=== PATIENT | female | born 1945 | race Caucasian/White ===

== ENCOUNTER 2020-08-31 08:33 | Emergency (ER) | payer MEDICARE, OTHER, SELFPAY ==
[2020-08-31 08:36] VITALS: BP 153/92; PULSE 71; RESP 17; TEMP 36.6; O2SAT 99; BMI 25.4
--- NOTE | 2020-08-31 08:38 | XR_ITS ---
WS: [id number] RIGHT FOOT: 3 VIEW(S) TECHNIQUE: AP, oblique and lateral. HISTORY: foot pain COMPARISON: None available. No acute fracture or dislocation. Normal tarsal/metatarsal alignment. Soft tissue edema over the lateral foot near the fifth metatarsophalangeal joint. There is also exten sive soft tissue edema surrounding the metatarsals. No foreign body. No evidence for osteomyelitis. XR/XR foot RT min 3V* [id number] IMPRESSION: Soft tissue edema surrounding the foot. No fracture.
--- NOTE | 2020-08-31 08:59 | PC.NURSE ---
RADIOLOGY AT BEDSIDE
--- NOTE | 2020-08-31 09:24 | ED_ITS ---
HPI - Extremity Problem General: Chief complaint: Extremity Injury, Lower Stated complaint: R FOOT PAIN Time Seen by Provider: 08/31/20 08:37 History of Present Illness: HPI Narrative: 75-year-old female comes in complaining of right foot pain 2 weeks ago she jammed her right fifth toe. Initially it felt okay she no new problems that in the last couple of days she began having swelling and pain. She has not had any puncture wounds or injuries cuts or abrasions that she has noticed. She denies previously having any episodes like this. She has no history of peripheral vascular disease and she has no history of diabetes. No other trauma to the the foot since the episode 2 weeks ago. MD Complaint: joint swelling and joint pain Onset (ago): day(s) (2) Pain Consistency: constant Location: left Quality: aching and constant Radiation: none Relieving factors: rest Exacerbating factors: weight bearing, walking and palpation Associated symptoms: Deny arthralgias, chest pain, fever(s), myalgias, rash or short of breath Review of Systems Const: Denies: fever(s) ENMT: Denies: throat pain, ear or mastoid pain, nasal discharge or nasal congestion Card: Denies: chest pain Resp: Denies: dyspnea, productive cough or non-productive cough GI: Denies: abdominal pain, nausea, vomiting, hematemesis, coffee ground emesis, diarrhea, constipation, bloating, hematochezia or melena : Denies: flank pain, difficulty voiding, dysuria, urinary frequency or urinary urgency Skin/Breast: Denies: rash Physical Exam Const: COMMON NORMALS: no acute distress GENERAL APPEARANCE: cooperative and comfortable ORIENTATION/CONSCIOUSNESS: Yes awake, Yes oriented to person, Yes oriented to place and Yes oriented to time HENMT: COMMON NORMALS: normocephalic, atraumatic and hearing grossly normal bilaterally HEAD & SCALP: normocephalic and atraumatic Neck/C-Spine: COMMON NORMALS: no JVD Lymph: LYMPHATIC: no lymphadenopathy noted and no lymphedema noted Resp: COMMON NORMALS: normal respiratory effort, No retractions, No use of accessory muscles and clear to auscultation bilaterally AUSCULTATION: clear to auscultation bilaterally Cardio: COMMON NORMALS: no JVD, regular rate, regular rhythm and No murmurs present (Cardio) RATE: regular rate RHYTHM: regular rhythm GI: COMMON NORMALS: Soft to palpation and No hepatosplenomegaly present AUSCULTATION: Yes normoactive bowel sounds PALPATION: Yes Soft to palpation, No Tenderness to palpation present (GI), No Guarding due to palpation present (GI) and Yes No hepatosplenomegaly present Extremity: NARRATIVE EXTREMITY EXAM: Swelling and erythema with localized edema of the right fifth MP joint. There is no evidence of abscess there is no induration. Dorsalis pedis posterior tibialis pulses are normal. Range of motion normal. MP joint exquisitely tender even to light touch. Neuro: SENSORIUM/ORIENTATION: Yes oriented to person, Yes oriented to place and Yes oriented to time Skin: COMMON NORMALS: no rashes or lesions noted GENERAL SKIN EXAM: no rashes or lesions noted Course Vital Signs: Vital signs: Vital Signs Temperature 97.9 F 08/31/20 08:36 Pulse Rate 60 08/31/20 10:26 Respiratory Rate 17 08/31/20 10:26 Blood Pressure 146/68 08/31/20 10:26 Pulse Oximetry 100 08/31/20 10:26 MDM - Extremity (Nontraumatic) Lab Data: Attestation: I reviewed the patient's lab results. Labs: Lab Results 08/31/20 08/31/20 Range/Units 09:19 09:19 WBC 10.2 H (4.0-10.0) 10^3/ uL RBC 4.33 (4.1-5.3) 10^6/u L Hgb 12.1 (11.5-15.3) g/dL Hct 39.3 (37.0-47.0) % MCV 90.8 (81-99) fL MCH 27.9 L (28.0-34.0) pg MCHC 30.8 (30.0-36.0) g/dL RDW 14.1 (12.1-15.1) % Plt Count 329 (130-400) 10^3/c mm MPV 10.0 (7.4-10.4) fL Neut % (Auto) 72.8 % Lymph % (Auto) 17.2 % [place] % (Auto) 6.1 % Eos % (Auto) 1.9 % Baso % (Auto) 1.1 % Neut # (Auto) 7.46 (1.8-7.7) 10^3/u L Lymph # (Auto) 1.8 (0.8-4.8) 10^3/u L [place] # (Auto) 0.6 (0.2-0.9) 10^3/u L Eos # (Auto) 0.2 (0.0-0.8) 10^3/u L Baso # (Auto) 0.1 (0.0-0.1) 10^3/u L Nucleated RBC % (a uto) 0 % Nucleated RBCs # 0.0 /100WBC Sodium 136 (136-145) mmol/L Potassium 4.3 (3.5-5.1) mmol/L Chloride 101 (98-107) mmol/L Carbon Dioxide 25 (22-29) mmol/L Anion Gap 14.3 (5-19) BUN 9 (8-23) mg/dL Creatinine 0.8 (0.5-0.9) mg/dL GFR Calculation Not Reportable Glucose 111 (65-115) mg/dL Calculated Osmolal ity 281 L (285-295) mOsm/k g Calcium 9.0 (8.5-10.5) mg/dL Total Bilirubin 0.2 (0.15-1.2) mg/dL AST 13 (0-32) U/L ALT 10 (0-33) U/L Alkaline Phosphata se 125 H (35-105) IU/L Total Protein 6.9 (6.6-8.7) g/dL Albumin 4.0 (3.5-5.2) g/dL Globulin 2.9 (1.3-4.6) g/dL Discharge Plan Discharge Patient Disposition: Home Clinical Impression: Gouty arthritis of left foot Condition: Stable Prescriptions: New hydrocodone-acetaminophen 5-325 mg tablet 1 tab PO Q6H PRN (Reason: pain) Qty: 10 RF: 0 diclofenac sodium 75 mg tablet,delayed release (DR/EC) 75 mg PO Q12H PRN (Reason: pain) Qty: 20 RF: 0 Medrol (Jimmy) 4 mg tablets,dose pack See Rx Instructions .ROUTE .COMPLEX Qty: 21 RF: 0 Discharge Orders: Discharge Order (Routine); Ordered 08/31/20 Ordered By: Ganesh Varela Discharge Date/Time: 08/31/20 10:26 Coding Level of Care Code ED Drawing In Hand for Chg Fwd Exam Comprehensive
[2020-08-31 09:35] LABS: Basophils # 0.1 10^3/uL (0.0-0.1); Basophils % 1.1 %; Eosinophils # 0.2 10^3/uL (0.0-0.8); Eosinophils % 1.9 %; Hematocrit 39.3 % (37.0-47.0); Hemoglobin 12.1 g/dL (11.5-15.3); Lymphocytes # 1.8 10^3/uL (0.8-4.8); Lymphocytes % 17.2 %; Mean Corpuscular HGB Conc 30.8 g/dL (30.0-36.0); Mean Corpuscular Hemoglobin 27.9 pg (28.0-34.0); Mean Corpuscular Volume 90.8 fL (81-99); Monocytes # 0.6 10^3/uL (0.2-0.9); Monocytes % 6.1 %; Neutrophils # 7.46 10^3/uL (1.8-7.7); Neutrophils % 72.8 %; Nucleated Red Blood Cells % 0 %; Platelet Count 329 10^3/cmm (130-400); Red Blood Count 4.33 10^6/uL (4.1-5.3); Red Cell Distribution Width 14.1 % (12.1-15.1); White Blood Count 10.2 10^3/uL (4.0-10.0)
[2020-08-31 09:54] LABS: Alanine Aminotransferase 10 U/L (0-33); Alkaline Phosphatase 125 IU/L (35-105); Aspartate Amino Transferase 13 U/L (0-32); Blood Urea Nitrogen 9 mg/dL (8-23); Carbon Dioxide 25 mmol/L (22-29); Chloride 101 mmol/L (98-107); Globulin 2.9 g/dL (1.3-4.6); Glucose 111 mg/dL (65-115); Osmolality Calculated 281 mOsm/kg (285-295); Sodium 136 mmol/L (136-145); Total Bilirubin 0.2 mg/dL (0.15-1.2); Total Protein 6.9 g/dL (6.6-8.7)
[2020-08-31 09:57] LABS: Anion Gap 14.3 (5-19); Potassium 4.3 mmol/L (3.5-5.1)
[2020-08-31] MEDS: HYDROcodone-acetaminophen 7.5-325 mg Tablet 1 TAB PO (10:17)
[2020-08-31 10:26] VITALS: BP 146/68; PULSE 60; RESP 17; O2SAT 100
--- NOTE | 2020-08-31 13:15 | DCPLANNER ---
dispatch manager had message to schedule a follow up appointment for patient with a primary care physician. dispatch manager called the [facility] in [place], spoke with Liyah. A follow up appointment is scheduled for Thursday, September 05, 2020 at 10:00 with Shabana. dispatch manager called patient and gave patient the appointment information, patient stated that she would attend the appointment.
--- NOTE | 2020-09-12 15:11 | DCPLANNER ---
Patient had a follow up appointment scheduled for 09.05.20 at [facility] - patient did attend appointment.
== END 2020-08-31 10:26 | disposition home or self-care (01) ==
LOC: ER 09:46
PROVIDERS: Emergency Provider Family Medicine; Family Provider Nurse Practitioner; PCP Nurse Practitioner
DX: M10.072 Idiopathic gout, left ankle and foot (principal)
CPT/HCPCS: 12345; 36415; 73630; 80053; 85025; 96372; 99281; 99283; J2930

== ENCOUNTER 2023-03-10 09:39 | Emergency (ER) | payer MEDICARE, OTHER, SELFPAY ==
[2023-03-10] VITALS (8 sets, daily range): BP systolic 134–183; BP diastolic 72–87; PULSE 55–641; RESP 14–18; TEMP 36.3–36.7; O2SAT 95–99
--- NOTE | 2023-03-10 10:18 | ECG_ITS ---
[facility] Test Date: 2023-03-10 Pat Name: Ruddy Velazquez Department: Room: Gender: Female Excel Expert: : 1945 Requested By: Ganesh Manzanares Order Number: [id number] Deedee MD: Sal Lee M.D. Measurements Intervals [place] Rate: 65 P: 60 GA: 169 QRS: 65 QRSD: 82 T: 66 QT: 404 QTc: 420 Interpretive Statements SINUS RHYTHM MINIMAL ST DEPRESSION [0.025+ mV ST DEPRESSION] No previous ECG available for comparison Electronically Signed On 03-10-2023 20:41:29 CDT by Sal Lee M.D. [email or web address] [email or web address] [email or web address] hospitalS[id number]
--- NOTE | 2023-03-10 10:27 | W.ED.GENADLT ---
HPI - General Adult General: Chief complaint: Airway/Esophagus Foreign Body Stated complaint: states meat stuck in throat Time Seen by Provider: 03/10/23 09:50 Source: patient Mode of arrival: ambulatory History of Present Illness: 77-year-old female who presents to the emergency room with complaints of difficulty swallowing for approximately the last 36-40 hours. She has not been able to spot swallow any saliva. She denies any mopped assist hematemesis or coffee-ground emesis. She has had difficulty swallowing the past but never had anything get impacted. She is at the point now anything she tries to eat to get stuck and shortly thereafter whether it be liquid or solid she throws it back up again. She has not been able to swallow saliva either. Onset (ago): day(s) (2) Relieving factors: none Exacerbating factors: other Associated symptoms: Reports nausea and vomiting; Deny chest pain, confusion, cough, diaphoresis, decreased appetite, dyspnea, fevers/chills, headache(s), malaise, rash, palpitations, seizures, short of breath, syncope or weakness Review of Systems Const: Denies: fever(s), chills, fatigue, malaise or diaphoresis ENMT: Denies: throat pain, ear or mastoid pain, nasal discharge or nasal congestion Card: Denies: chest pain, palpitations or syncope Resp: Denies: dyspnea GI: Reports: nausea and vomiting; Denies: abdominal pain or hematemesis : Denies: flank pain, difficulty voiding, dysuria, urinary frequency or urinary urgency Skin/Breast: Denies: rash Neuro: Denies: headache(s) or confusion Physical Exam Const: COMMON NORMALS: no acute distress GENERAL APPEARANCE: cooperative and comfortable ORIENTATION/CONSCIOUSNESS: Yes awake, Yes oriented to person, Yes oriented to place and Yes oriented to time HENMT: COMMON NORMALS: normocephalic, atraumatic and hearing grossly normal bilaterally HEAD & SCALP: normocephalic and atraumatic Resp: COMMON NORMALS: normal respiratory effort, No retractions, No use of accessory muscles and clear to auscultation bilaterally AUSCULTATION: clear to auscultation bilaterally Cardio: COMMON NORMALS: regular rate, regular rhythm and No murmurs present (Cardio) RATE: regular rate RHYTHM: regular rhythm GI: COMMON NORMALS: Soft to palpation and No hepatosplenomegaly present AUSCULTATION: Yes normoactive bowel sounds PALPATION: Yes Soft to palpation, No Tenderness to palpation present (GI), No Guarding due to palpation present (GI) and Yes No hepatosplenomegaly present Extremity: COMMON NORMALS: normal to inspection, capillary refill normal, no clubbing, cyanosis or edema, no calf tenderness and no pedal edema Neuro: SENSORIUM/ORIENTATION: Yes oriented to person, Yes oriented to place and Yes oriented to time Skin: COMMON NORMALS: no rashes or lesions noted GENERAL SKIN EXAM: no rashes or lesions noted Course Vital Signs: Vital signs: Vital Signs Temperature 97.4 F L 03/10/23 11:13 Pulse Rate 641 H 03/10/23 11:13 Respiratory Rate 17 03/10/23 11:13 Blood Pressure 172/75 03/10/23 11:13 Pulse Oximetry 99 03/10/23 11:13 Oxygen Delivery Me thod Room Air 03/10/23 11:13 [facility] - General Adult Medical Decision Making Discussed with surgery on-call. They will take the patient to the GI lab for an EGD to relieve esophageal food bolus. Fluids given. EKG shows no acute changes. Laboratory studies completed. Medical Records I reviewed the patient's medical records. Lab Data I reviewed the patient's lab results. 03/10/23 10:36 03/10/23 10:36 Laboratory Results WBC 10.8 10^3/uL (4.0-10.0) H 03/10/23 10:36 RBC 4.92 10^6/uL (4.1-5.3) 03/10/23 10:36 Hgb 13.7 g/dL (11.5-15.3) 03/10/23 10:36 Hct 43.2 % (37.0-47.0) 03/10/23 10:36 MCV 87.8 fl (81-99) 03/10/23 10:36 MCH 27.8 pg (28.0-34.0) L 03/10/23 10:36 MCHC 31.7 g/dL (30.0-36.0) 03/10/23 10:36 RDW 14.9 % (12.1-15.1) 03/10/23 10:36 Plt Count 399 10^3/cmm (130-400) 03/10/23 10:36 MPV 9.4 fL (7.4-10.4) 03/10/23 10:36 Neut % (Auto) 83.0 % 03/10/23 10:36 Lymph % (Auto) 11.0 % 03/10/23 10:36 [place] % (Auto) 4.4 % 03/10/23 10:36 Eos % (Auto) 0.5 % 03/10/23 10:36 Baso % (Auto) 0.7 % 03/10/23 10:36 Neut # (Auto) 8.98 10^3/uL (1.8-7.7) H 03/10/23 10:36 Lymph # (Auto) 1.2 10^3/uL (0.8-4.8) 03/10/23 10:36 [place] # (Auto) 0.5 10^3/uL (0.2-0.9) 03/10/23 10:36 Eos # (Auto) 0.1 10^3/uL (0.0-0.8) 03/10/23 10:36 Baso # (Auto) 0.1 10^3/uL (0.0-0.1) 03/10/23 10:36 Nucleated RBC % (auto) 0 % 03/10/23 10:36 Nucleated RBCs # 0.0 /100WBC 03/10/23 10:36 PT 13.20 SECONDS (12.1-14.9) 03/10/23 10:36 INR 0.97 (0.8-1.2) 03/10/23 10:36 APTT 29.6 SECONDS (23.9-36.7) 03/10/23 10:36 Sodium 137 mmol/L (136-145) 03/10/23 10:36 Potassium 4.0 mmol/L (3.5-5.1) 03/10/23 10:36 Chloride 100 mmol/L (98-107) 03/10/23 10:36 Carbon Dioxide 25 mmol/L (22-29) 03/10/23 10:36 Anion Gap 16.0 (5-19) 03/10/23 10:36 BUN 16 mg/dL (8-23) 03/10/23 10:36 Creatinine 0.8 mg/dL (0.5-0.9) 03/10/23 10:36 GFR Calculation Not Reportable 03/10/23 10:36 Glucose 112 mg/dL (65-115) 03/10/23 10:36 Calculated Osmolality 286 mOsm/kg (285-295) 03/10/23 10:36 Calcium 9.2 mg/dL (8.5-10.5) 03/10/23 10:36 Total Bilirubin 0.6 mg/dL (0.15-1.2) 03/10/23 10:36 AST 13 U/L (0-32) 03/10/23 10:36 ALT 8 U/L (0-33) 03/10/23 10:36 Alkaline Phosphatase 114 U/L (35-105) H 03/10/23 10:36 Total Protein 7.8 g/dL (6.6-8.7) 03/10/23 10:36 Albumin 4.3 g/dL (3.5-5.2) 03/10/23 10:36 Globulin 3.5 g/dL (1.3-4.6) 03/10/23 10:36 Discharge Plan Discharge Patient Disposition: Placed in Observation Admit Provider: Eduarda Crenshaw Clinical Impression: Food impaction of esophagus Coding Level of Care Code ED [employer] Scientist for Christieg Nando
[2023-03-10] MEDS: ondansetron 2 mg/ML SDV 2 mL 4 MG IVP (10:33)
[2023-03-10] MEDS: sodium chloride 0.9% 1,000 ML 999 ML IV (10:34)
--- NOTE | 2023-03-10 10:42 | PM.CONSULT ---
Providers/Reason For Consult Consulting Physician/Specialty*: ER physician Reason for Consult*: Fluid bolus Requesting Physician: ER physician History of Present Illness History of Present Illness Ruddy Velazquez is a 77 year old female who was eating roast beef last night. The roast beef got stuck. The patient has not been able to clear the obstruction. The patient states that she has had 1 episode where food is getting stuck before. But she was able to get it out herself. She has not seek medical attention for this. She denies shortness of breath, fever or chills. She denies diarrhea, constipation. She denies any recent weight loss. Review of Systems General: Reports: 10 or more systems reviewed and unremarkable except in HPI and below Medications/Allergies Home Medications Medication Instructions Recorded Confirmed Last Taken Type No Known Home Medications 03/10/23 03/10/23 Unknown History Allergies Allergy/AdvReac Type Severity Reaction Status Date / Time codeine Allergy Unknown Verified 03/10/23 09:48 Current Medications Generic Name Dose Route Start Last Admin Trade Name Freq PRN Reason Stop Dose Admin Sodium Chloride 1,000 mls @ 999 mls/hr 03/10/23 10:17 03/10/23 10:34 Sodium Chloride 0.9% IV 03/10/23 11:17 999 mls/hr .Q1H1M ONE Administration Vitals/I&O/Wt Last Vital Signs Temp 97.7 F 03/10/23 09:44 Pulse 69 03/10/23 09:44 Resp 16 03/10/23 09:44 BP 134/76 03/10/23 09:44 Pulse Ox 99 03/10/23 09:44 O2 Del Method Room Air 03/10/23 09:44 Weight last 48 hrs Weight 142 lb Physical Exam Narrative: Generally: No acute distress HEENT is normocephalic atraumatic Neck: Supple range of motion and nontender without masses Lungs: Clear to auscultation and percussion Heart: Is regular rate and rhythm without murmurs. There is no S3 or S4. There is no rubs clicks or JVD noted Abdomen: Soft, nontender without masses. The patient has no hepatosplenomegaly. The patient is positive bowel sounds. There is no hernias that I can appreciate. There is no costovertebral angle tenderness Extremities: There is no obvious deformities or point tenderness suggestive of fracture. The patient has good capillary refill in both her hands and feet. Neurologic: Patient is awake, alert, oriented x3. The patient's Geraldine Coma Scale is 15. The patient moves all 4 extremities without difficulty. The patient sensations intact to light touch throughout. A&P Assessment and plan (1) Food bolus obstruction of intestine: I explained the risk and benefits of EGD to the patient. The patient seems understand this risk and benefits would like to proceed. Coding Level of Care Code Acute Code for [facility] Fw Diagnoses Food bolus obstruction of intestine K56.699
--- NOTE | 2023-03-10 10:48 | PC.NURSE ---
DR. EVERETT PRESENTED PT WITH CONSENT FORM FOR GI PROCEDURE. WITNESSED PT CONSENT
[2023-03-10 10:50] LABS: Basophils # 0.1 10^3/uL (0.0-0.1); Basophils % 0.7 %; Eosinophils # 0.1 10^3/uL (0.0-0.8); Eosinophils % 0.5 %; Hematocrit 43.2 % (37.0-47.0); Hemoglobin 13.7 g/dL (11.5-15.3); Lymphocytes # 1.2 10^3/uL (0.8-4.8); Mean Corpuscular HGB Conc 31.7 g/dL (30.0-36.0); Mean Corpuscular Hemoglobin 27.8 pg (28.0-34.0); Mean Corpuscular Volume 87.8 fl (81-99); Mean Platelet Volume 9.4 fL (7.4-10.4); Monocytes # 0.5 10^3/uL (0.2-0.9); Monocytes % 4.4 %; Neutrophils # 8.98 10^3/uL (1.8-7.7); Nucleated Red Blood Cells % 0 %; Platelet Count 399 10^3/cmm (130-400); Red Blood Count 4.92 10^6/uL (4.1-5.3); Red Cell Distribution Width 14.9 % (12.1-15.1); White Blood Count 10.8 10^3/uL (4.0-10.0)
[2023-03-10 11:02] LABS: INR 0.97 (0.8-1.2)
[2023-03-10 11:03] LABS: Partial Thromboplastin Time 29.6 SECONDS (23.9-36.7)
[2023-03-10 11:12] LABS: Alanine Aminotransferase 8 U/L (0-33); Albumin Level 4.3 g/dL (3.5-5.2); Alkaline Phosphatase 114 U/L (35-105); Aspartate Amino Transferase 13 U/L (0-32); Blood Urea Nitrogen 16 mg/dL (8-23); Calcium 9.2 mg/dL (8.5-10.5); Carbon Dioxide 25 mmol/L (22-29); Chloride 100 mmol/L (98-107); Creatinine Clr Calc Pharmacy 53.6003; Globulin 3.5 g/dL (1.3-4.6); Glucose 112 mg/dL (65-115); Osmolality Calculated 286 mOsm/kg (285-295); Sodium 137 mmol/L (136-145); Total Bilirubin 0.6 mg/dL (0.15-1.2); Total Protein 7.8 g/dL (6.6-8.7)
[2023-03-10] MEDS: sodium chloride 0.9% 1,000 ML 30 ML IV (11:47)
--- NOTE | 2023-03-10 12:36 | ANES.PREANE2 ---
Pre-Anesthetic Assessment Height/Weight: Height 1.63 m Weight 64.41 kg Temp Pulse Resp BP Pulse Ox O2 Del Method 97.4 F L 641 H 17 172/75 99 Room Air 03/10/23 11:13 03/10/23 11:13 03/10/23 11:13 03/10/23 11:13 03/10/23 11:13 03/10/23 11:13 Preop Diagnosis: food bolus Operation Date: 03/10/23 12:15 Proposed Procedures p EGD(Not Applicable) - Eduarda Crenshaw MD Familial anesthetic complications: none Was Beta Ezio taken within 24 hours: N/A Was Clonidine taken within 24 hours: N/A Last intake: Intake Last Liquid Date 03/08/23 Last Liquid Time 19:00 Last Solid Date 03/08/23 Last Solid Time 19:00 Social No alcohol and No tobacco Exam alert, oriented x 3, clear to auscultation bilaterally and regular rate & rhythm Airway Submandibular: within normal limits Cervical ROM: within normal limits Mallampati: Class II Dentition: false GI Food bolus Anesthetic Plan ASA status: 2E Anesthesia: General Medications/Allergies Home Medications Medication Instructions Recorded Confirmed Last Taken Type No Known Home Medications 03/10/23 03/10/23 Unknown History Allergies Allergy/AdvReac Type Severity Reaction Status Date / Time codeine Allergy Unknown Verified 03/10/23 09:48 Current Medications Generic Name Dose Route Start Last Admin Trade Name Freq PRN Reason Stop Dose Admin Sodium Chloride 1,000 mls @ 30 mls/hr 03/10/23 11:30 03/10/23 11:47 Sodium Chloride 0.9% IV 03/11/23 11:29 30 mls/hr .Q24H LARISA Administration Data Anesthesia 03/10/23 10:36 03/10/23 10:36 Short CBC 03/10/23 Range/Units 10:36 WBC 10.8 H (4.0-10.0) 10^3/uL Hgb 13.7 (11.5-15.3) g/dL Hct 43.2 (37.0-47.0) % MCV 87.8 (81-99) fl Plt Count 399 (130-400) 10^3/cmm Neut % (Auto) 83.0 % Neut # (Auto) 8.98 H (1.8-7.7) 10^3/uL BMP 03/10/23 10:36 Sodium 137 Potassium 4.0 Chloride 100 Carbon Dioxide 25 BUN 16 Creatinine 0.8 Glucose 112 Calcium 9.2 Liver Function 03/10/23 Range/Units 10:36 Total Bilirubin 0.6 (0.15-1.2) mg/dL AST 13 (0-32) U/L ALT 8 (0-33) U/L Alkaline Phosphatase 114 H (35-105) U/L Albumin 4.3 (3.5-5.2) g/dL Coags 03/10/23 10:36 PT 13.20 INR 0.97 APTT 29.6 Cardiac Studies: No Data to Display
--- NOTE | 2023-03-10 14:27 | ANE.PACU2 ---
Inpatient post-anesthesia follow up: Airway intact: Yes Vital signs: Temperature 98.0 F Pulse Rate 72 Respiratory Rate 18 Blood Pressure 151/87 Pulse Oximetry 96 Oxygen Delivery Me thod Room Air Oxygen Flow Rate Fraction of Inspir ed Oxygen Hydration adequate: Yes Nausea and vomiting: No Pain level: 2 Mental status: Baseline
--- NOTE | 2023-03-13 12:35 | DCPLANNER ---
dietary manager called patient due to no primary care physician - patient declines at this time.
== END 2023-03-10 11:30 | disposition still patient (30) ==
LOC: ER 10:43 → ER IP 12:17
PROVIDERS: Surgery Surgical Critical Care; Emergency Provider Family Medicine
PROC: 0DJ08ZZ Inspection of Upper Intestinal Tract, Via Natural or Artificial Opening Endoscopic (ICD-10-PCS; CPT 43235; principal; 2023-03-10 12:15)
DX: T18.128A Food in esophagus causing other injury, initial encounter (principal); X58.XXXA Exposure to other specified factors, initial encounter; K22.2 Esophageal obstruction
CPT/HCPCS: 43239; 80053; 85025; 85610; 85730; 88305; 93005; 96361; 96374; 96375; 96376; 99284; G0378; J0330; J2405; J2704; J7030

== ENCOUNTER → 2023-04-02 13:30 | Outpatient (BNVA) | payer MEDICARE, OTHER, SELFPAY | PROVIDERS: Visit Provider Surgery | DX: R13.10 Dysphagia, unspecified (principal) | CPT/HCPCS: 99203 ==

== ENCOUNTER 2023-04-29 08:38 | Day surgery (SDC) | payer MEDICARE, OTHER, SELFPAY ==
[2023-04-29] MEDS: sodium chloride 0.9% 1,000 ML 30 ML IV (09:15)
--- NOTE | 2023-04-29 10:27 | ANES.PREANE2 ---
Pre-Anesthetic Assessment Height/Weight: Height 1.63 m Operation Date: 04/29/23 10:30 Proposed Procedures p [id number] egd with balloon dialaition R13.10(Not Applicable) - Alo Garcia DO Was Beta Ezio taken within 24 hours: N/A Was Clonidine taken within 24 hours: N/A Last intake: Intake Last Liquid Date 04/28/23 Last Liquid Time 22:00 Last Solid Date 04/28/23 Last Solid Time 14:00 Social No alcohol and No tobacco Exam alert, oriented x 3, clear to auscultation bilaterally and regular rate & rhythm Airway Cervical ROM: within normal limits Mallampati: Class II Dentition: full History/ROS No significant history except as noted and No significant complaints Pulmonary None reported CV/HEM None reported None reported Hepatic None reported GI dysphagia Metabolic None reported Musc/skel None reported Neuropsych None reported Anesthetic Plan ASA status: 2 Anesthesia: Anesthesia Evaluation and MAC Risk of > 500 ml blood loss (7ml/kg in children): Yes, adequate IV access and fluids planned Medications/Allergies Home Medications Medication Instructions Recorded Confirmed Last Taken Type pantoprazole 40 mg tablet,delayed 40 mg PO DAILY peptic ulcer 03/10/23 04/29/23 04/28/23 Rx release (Protonix) disease 8 weeks #60 tabs sucralfate 1 gram tablet (Carafate) 1 g PO Q6H peptic ulcer disease 8 03/10/23 04/29/23 04/28/23 Rx weeks #224 tabs Allergies Allergy/AdvReac Type Severity Reaction Status Date / Time codeine AdvReac Unknown Verified 04/29/23 09:12 Current Medications Generic Name Dose Route Start Last Admin Trade Name Freq PRN Reason Stop Dose Admin Sodium Chloride 1,000 mls @ 30 mls/hr 04/29/23 09:15 04/29/23 09:15 Sodium Chloride 0.9% IV 04/30/23 09:14 30 mls/hr .Q24H LARISA Administration PFSH Anesthesia Medical History Hx of cataract Surgical History Hx of hysterectomy Family History Mother Diabetes Social History Smoking and tobacco status: never smoked Alcohol intake: never Data Anesthesia Cardiac Studies: No Data to Display
--- NOTE | 2023-04-29 11:07 | W.PM.OPSUD ---
Surgery/Procedure H&P Update DATE OF PROCEDURE: April 29, 2023 DATE H&P PERFORMED: 04/02/23 H&P UPDATE INFORMATION: I have reviewed H&P completed within last 30 days, I have examined patient prior to procedure and No changes to prior documentation PLANNED PROCEDURE: Operation Date: 04/29/23 10:30 Proposed Procedures p [id number] egd with balloon dialaition R13.10(Not Applicable) - Alo Garcia, DO
[2023-04-29 11:28] VITALS: BP 131/69; PULSE 55; RESP 12; TEMP 36.2; O2SAT 98
[2023-04-29 11:41] VITALS: BP 144/65; PULSE 51; RESP 16; O2SAT 99
[2023-04-29 11:52] VITALS: BP 162/69; PULSE 54; RESP 18; O2SAT 98
--- NOTE | 2023-04-29 14:08 | ANE.PACU2 ---
Inpatient post-anesthesia follow up: Airway intact: Yes Vital signs: Temperature 97.2 F Pulse Rate 54 Respiratory Rate 18 Blood Pressure 162/69 Pulse Oximetry 98 Oxygen Delivery Me thod Room Air Oxygen Flow Rate Fraction of Inspir ed Oxygen Hydration adequate: Yes Nausea and vomiting: No Pain level: 1 Mental status: Baseline
== END 2023-04-29 12:14 | disposition home or self-care (01) ==
PROVIDERS: Visit Provider Surgery
DX: K22.2 Esophageal obstruction (principal); K29.70 Gastritis, unspecified, without bleeding; K31.819 Angiodysplasia of stomach and duodenum without bleeding
CPT/HCPCS: 43239; 43249; 88305; J2704; J7030

== ENCOUNTER → 2023-05-26 16:58 | Outpatient (BNVA) | payer MEDICARE, OTHER, SELFPAY | PROVIDERS: Visit Provider Surgery | DX: Z09 Encounter for follow-up examination after completed treatment for conditions other than malignant neoplasm (principal) | CPT/HCPCS: 99212 ==

== ENCOUNTER → 2025-07-21 12:48 | Outpatient (BNVA) | payer MEDICARE, OTHER, SELFPAY | PROVIDERS: Visit Provider Nurse Practitioner Family | DX: L81.4 Other melanin hyperpigmentation (principal); L57.8 Other skin changes due to chronic exposure to nonionizing radiation; L82.1 Other seborrheic keratosis; D22.5 Melanocytic nevi of trunk; D17.21 Benign lipomatous neoplasm of skin and subcutaneous tissue of right arm; L82.0 Inflamed seborrheic keratosis; Z78.9 Other specified health status; L29.89 Other pruritus; L53.8 Other specified erythematous conditions; B07.8 Other viral warts; R23.8 Other skin changes; D48.5 Neoplasm of uncertain behavior of skin; L57.0 Actinic keratosis | CPT/HCPCS: 11102; 17000; 17110; 69100; 99203 ==

== ENCOUNTER → 2025-08-15 07:49 | Outpatient (BNVA) | payer MEDICARE, OTHER, SELFPAY | PROVIDERS: Visit Provider Dermatology | DX: L82.0 Inflamed seborrheic keratosis (principal); C44.222 Squamous cell carcinoma of skin of right ear and external auricular canal | CPT/HCPCS: 13152; 17311; 99213 ==

== ENCOUNTER → 2025-08-28 14:31 | Outpatient (BNVA) | payer MEDICARE, OTHER, SELFPAY | PROVIDERS: Visit Provider Dermatology | DX: Z48.02 Encounter for removal of sutures (principal) | CPT/HCPCS: 99212 ==